=== PATIENT | female | born 1995 | race Caucasian/White ===

== ENCOUNTER 2018-07-13 20:47 | Outpatient (CLI) | payer OTHER, BC | END 2018-07-14 06:15 | disposition home or self-care (01) | LOC: SLEEP 20:47 | PROVIDERS: ATTEND Otolaryngology Otolaryngology/Facial Plastic Surgery | DX: G47.33 Obstructive sleep apnea (adult) (pediatric) (principal); G47.10 Hypersomnia, unspecified; J35.3 Hypertrophy of tonsils with hypertrophy of adenoids; R06.83 Snoring | CPT/HCPCS: 95810 ==